=== PATIENT | female | born 1960 | race Caucasian/White ===

== ENCOUNTER 2024-07-09 11:35 | Outpatient (CLI) | payer MEDICARE, SELFPAY ==
--- NOTE | 2024-07-09 11:43 | XR_ITS ---
WS: [id number] Exam: XR hip RT 2-3V wo/w pel* [id number] Date/Time of Exam: 07/09/2024 12:03 PM Reason For Exam: R HIP PAIN No acute fracture. Advanced degenerative change with oiis-[id number]-llit articulation. Upward and outward mi gration of the femoral head. Normal soft tissues. XR/XR hip RT 2-3V wo/w pel* [id number] IMPRESSION: 1. Moderately advanced degenerative change of the RIGHT hip with [id number].
== END 2024-07-09 11:36 | disposition home or self-care (01) ==
LOC: RAD 11:39
PROVIDERS: Family Provider Family Medicine; PCP Family Medicine; Visit Provider Nurse Practitioner Family
DX: M16.11 Unilateral primary osteoarthritis, right hip (principal)
CPT/HCPCS: 73502